=== PATIENT | female | born 1970 | race Native Hawaiian/Other Pacific Islander ===

== ENCOUNTER 2018-01-25 07:28 | Day surgery (SDC) | payer OTHER, SELFPAY ==
[2018-01-17 12:31] VITALS: BMI 26.8
[~2018-01-25 07:28] MED LIST: EPINEPHrine 1:1000 Nasal Sol(30mL) ONE; Lidocaine/Epinephrine 1% 1:100000 10 ML IJ ONE; ceFAZolin IV 1 gm in Dextrose 1 GM/50 ML BAG IVPB ONE
[2018-01-25] MEDS ORDERED: Acetaminophen-Codeine 300/30 mg Tab PO PRN (08:24)
[2018-01-25] MEDS ORDERED: Dextrose 5%/0.45% NS 1,000 ML IV SCH (08:30)
[2018-01-25] MEDS ORDERED: Succinylcholine Chloride 20 mg/ml Syr (5 ml) IV ONE (09:16)
[2018-01-25] MEDS ORDERED: Propofol 10 mg/ml Inj (20 ML) ONE (09:16)
[2018-01-25] MEDS ORDERED: Lactated Ringer's 1,000 ML IV SCH (10:00)
[2018-01-25] MEDS ORDERED: Dextrose 5%/0.45% NS 500 ML IV ONE (11:30)
[2018-01-25 12:47] VITALS: RESP 18
[2018-01-25 14:41] VITALS: BP 118/68; PULSE 78; TEMP 97.7; O2SAT 97
--- NOTE | 2018-01-25 20:41 | OP ---
PROCEDURE DATE: 01/25/2018 PREOPERATIVE DIAGNOSIS: Nasopharyngeal mass. POSTOPERATIVE DIAGNOSIS: Nasopharyngeal mass. PROCEDURE: Endoscopic nasopharyngeal mass biopsy. SIGNIFICANT FINDINGS: Nasopharyngeal mass. DESCRIPTION OF THE PROCEDURE: The patient was brought into the room, placed in supine position. Anesthesia was initiated through an ET tube. Adrenaline-soaked pledgets were inserted into the nasal cavity, remained there for five minutes and removed. The patient was draped in usual manner. A 0-degree scope was inserted into nasal cavity, passed into the nasopharynx. Nasopharyngeal mass was noted. Multiple biopsies were taken. Bleeding was controlled using suction cautery and adrenaline-soaked pledgets and the scope was removed. The patient was taken off anesthesia and taken to recovery room in stable manner. Jose Alejandro Espino MD
== END 2018-01-25 14:35 | disposition home or self-care (01) ==
LOC: C.SDS 07:28
PROVIDERS: ATTEND Otolaryngology
DX: J34.9 Unspecified disorder of nose and nasal sinuses (principal)
CPT/HCPCS: 42804; 82948; 88307; J0690; J2270; J2405; J2704; J3010; J7042